=== PATIENT | male | born 1960 | race Caucasian/White ===

== ENCOUNTER → 2016-08-15 | Outpatient (CLI) | payer MEDICARE, OTHER | LOC: HEART 5 10:45 | DX: J45.40 Moderate persistent asthma, uncomplicated (principal) | CPT/HCPCS: 94060 ==

== ENCOUNTER → 2016-08-29 | Outpatient (CLI) | payer MEDICARE, OTHER | LOC: HEART 5 10:50 | DX: J45.40 Moderate persistent asthma, uncomplicated (principal); R94.2 Abnormal results of pulmonary function studies | CPT/HCPCS: 94060 ==

== ENCOUNTER → 2016-10-17 | Outpatient (CLI) | payer MEDICARE, OTHER | LOC: HEART 5 10:36 | DX: J45.40 Moderate persistent asthma, uncomplicated (principal) | CPT/HCPCS: 94060 ==